=== PATIENT | female | born 1965 | race Two or more races ===

== ENCOUNTER 2023-01-04 11:12 | Emergency (ER) | payer MEDICAID, OTHER ==
[~2023-01-04] VITALS: Ht 167.6 cm; Wt 82.6 kg
[2023-01-04 12:44] LABS: BUN/Creatinine Ratio 15.7 (10.0-20.0); Bilirubin, Total 1.2 mg/dL (0.2-1.0); Potassium 4.1 mmol/L (3.5-5.1)
[2023-01-04 13:00] LABS: Basophils # (auto) 0.1 10 ^3/uL (0-0.2); Basophils % (auto) 0.6 % (0.0-2.0); Lymphocytes # (auto) 1.7 10 ^3/uL (0.4-5.4); Monocytes # (auto) 0.6 10 ^3/uL (0-1.3); Monocytes % (auto) 5.5 % (0.0-12.0); Nucleated Red Blood Cells % 0.2 %
[2023-01-04 13:01] LABS: Eosinophils # (auto) 0.2 10 ^3/uL (0-0.8); Eosinophils % (auto) 1.4 % (0.0-7.0); Hematocrit 38.9 % (36.0-46.0); Hemoglobin 12.4 g/dL (12.2-16.2); Lymphocytes % (auto) 14.8 % (10.0-50.0); Mean Corpuscular Hemoglobin 26.4 pg (28.0-32.0); Mean Corpuscular Hgb Conc. 31.8 g/dL (32.0-36.0); Mean Corpuscular Volume 83.2 fL (80.0-100.0); Neutrophils # (auto) 8.8 10 ^3/uL (1.6-8.6); Neutrophils % (auto) 77.7 % (37.0-80.0); Red Blood Cells 4.68 10^6/uL (4.0-5.20); White Blood Cell 11.4 10^3/uL (4.4-10.8)
[2023-01-04] MEDS ORDERED: SODIUM CHLORIDE 0.9% 1,000 ML IV ONE (13:45)
[2023-01-04] MEDS ORDERED: ONDANSETRON ODT 4 MG TAB PO ONE (14:45)
[2023-01-04] MEDS ORDERED: CIPR-173 PO (18:48)
[2023-01-04] MEDS ORDERED: ONDA-144 PO (19:16)
[2023-01-04 20:30] VITALS: BP 133/68
== END 2023-01-04 20:34 | disposition home or self-care (01) ==
LOC: ER 11:12
DX: K52.9 Noninfective gastroenteritis and colitis, unspecified (principal); K44.9 Diaphragmatic hernia without obstruction or gangrene
CPT/HCPCS: 36415; 74176; 80053; 83605; 83690; 84484; 85025; 85048; 87040; 87045; 87177; 87427; 87493; 99284; Q0162